=== PATIENT | male | born 1985 | race Caucasian/White ===

== ENCOUNTER → 2019-07-05 | Outpatient (CLI) | payer OTHER ==
[~2019-07-05] MED LIST: LEVO50TA89; LEVO75TA73 PO; LISI-353 PO; LISI5TAB25 PO; METF-1; METF10002 PO; PANT40TA65 PO
--- NOTE | 2019-07-05 16:39 | EKG ---
[place]AC[place] [facility] [place]IENT NAME: HARVEY RIBEIRO : [id number] MR: [id number]: [id number] EXAM DATE: ORDERING PHYSICIAN: LATIA CHAPA TECHNOLOGIST: PETER Test Reason : CHEST PAIN Blood Pressure : / mmHG Vent. Rate : 084 BPM Atrial Rate : 084 BPM P-R Int : 170 ms QRS Dur : 078 ms QT Int : 368 ms P-R-T Axes : 059 050 030 degrees QTc Int : 434 ms Normal sinus rhythm Normal ECG When compared with ECG of 09-JUL-2013 03:10, No significant change was found Confirmed by LATIA CHAPA ([id number]) on 07/05/2019 4:36:16 PM Referred By: FIDELINA Confirmed By:LATIA CHAPA
== END ==
LOC: RESP 15:21
PROVIDERS: ATTEND Internal Medicine
DX: R07.9 Chest pain, unspecified (principal)

== ENCOUNTER → 2019-07-06 | Outpatient (CLI) | payer OTHER ==
[2019-07-06 13:10] LABS: LDL CHOLESTEROL 85 mg/dl
[2019-07-06 13:17] LABS: PLATELET COUNT, AUTOMATED 244 K/uL (150-450)
== END ==
LOC: LAB 12:21
PROVIDERS: ATTEND Internal Medicine
DX: E11.9 Type 2 diabetes mellitus without complications (principal); E03.9 Hypothyroidism, unspecified; R00.2 Palpitations; I10 Essential (primary) hypertension
CPT/HCPCS: 36415; 81001; 82040; 82043; 82247; 82310; 82374; 82435; 82465; 82565; 82947; 83036; 83718; 84075; 84132; 84155; 84295; 84439; 84443; 84450; 84460; 84478; 84520; 85025